=== PATIENT | female | born 1975 | race Caucasian/White ===

== ENCOUNTER 2018-08-13 23:18 | Emergency (ER) | payer SELFPAY ==
[~2018-08-13] VITALS: Ht 152.4 cm; Wt 73.9 kg
[2018-08-13 23:21] VITALS: Ht 152.4 cm; Wt 73.9 kg
[2018-08-14 01:00] VITALS: BP 160/92
== END 2018-08-14 01:00 | disposition other institution (70) ==
LOC: ED 23:18
DX: F41.9 Anxiety disorder, unspecified (principal); F17.210 Nicotine dependence, cigarettes, uncomplicated; F32.9 Major depressive disorder, single episode, unspecified; Z98.890 Other specified postprocedural states; Z90.49 Acquired absence of other specified parts of digestive tract; Z88.1 Allergy status to other antibiotic agents; Z88.6 Allergy status to analgesic agent